=== PATIENT | male | born 1935 | race Hispanic/Latino ===

== ENCOUNTER 2020-02-03 19:12 | Emergency (ER) | payer MEDICARE, OTHER ==
[~2020-02-03] VITALS: Ht 177.8 cm; Wt 102.1 kg
[2020-02-03] MEDS ORDERED: ARNUITY ELLIPT50 MCG IH (19:35)
[2020-02-03] MEDS ORDERED: ZESTRIL40 MG PO (19:36)
[2020-02-03] MEDS ORDERED: ALLERCLEAR10 MG PO (19:36)
[2020-02-03] MEDS ORDERED: HYDROCHLOROTH12.5 M1 PO (19:36)
[2020-02-03] MEDS ORDERED: AMLODIPINE BESY10 MG PO (19:37)
== END 2020-02-03 21:17 | disposition home or self-care (01) ==
LOC: ED 19:12
DX: G62.9 Polyneuropathy, unspecified (principal); I10 Essential (primary) hypertension; Z79.899 Other long term (current) drug therapy
CPT/HCPCS: 80053; 83735; 84443; 85025; 99284